=== PATIENT | male | born 1985 | race Caucasian/White ===

== ENCOUNTER 2023-10-27 23:11 | Emergency (ER) | payer MEDICAID, SELFPAY ==
[2023-10-27 23:29] VITALS: BP 160/104; PULSE 96; TEMP 37.4; O2SAT 99; BMI 25.8
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
[2023-10-28] MEDS: DIPHENHYDRAMINE HCL 25 MG CAPSULE 50 MG PO (00:16)
[2023-10-28 00:26] LABS: Basophils Absolute Auto 0.1 10^3/uL (0.0-0.1); Basophils Percent Auto 0.6 % (0.2-2.0); Eosinophils Absolute Auto 0.5 10^3/uL (0.0-0.7); Eosinophils Percent Auto 3.7 % (0.9-7.0); Hematocrit 49.9 % (42.0-54.0); Hemoglobin 16.4 g/dL (14.0-18.0); Immature Granulocytes Abs Auto 0.06 10^3/uL (0.00-0.03); Immature Granulocytes Pct Auto 0.4 % (0.0-0.5); Lymphocytes Absolute Auto 1.6 10^3/uL (1.2-3.8); Lymphocytes Percent Auto 10.9 % (20.5-60.0); Mean Corpuscular HGB Conc 32.9 g/dL (29.9-35.2); Mean Corpuscular Hemoglobin 28.4 pg (25.9-34.0); Mean Corpuscular Volume 86.5 fL (80.0-94.0); Mean Platelet Volume 8.7 fL (9.5-13.5); Monocytes Percent Auto 6.8 % (1.7-12.0); Neutrophils Absolute Auto 11.5 10^3/uL (1.4-6.5); Neutrophils Percent Auto 77.6 % (43.0-75.0); Platelet Count 404 10^3/uL (150-450); Red Blood Count 5.77 10^6/uL (4.70-6.10); Red Cell Distribution Width 13.2 % (11.0-15.0); White Blood Count 14.8 10^3/uL (4.0-11.0)
[2023-10-28 00:41] LABS: Alanine Aminotransferase 23 U/L (16-63); Albumin Level 3.9 g/dL (3.4-5.0); Alkaline Phosphatase 61 U/L (46-116); Anion Gap 10.3; Aspartate Amino Transferase 11 U/L (15-37); Bilirubin Total 0.3 mg/dL (0.2-1.0); Calcium 9.5 mg/dL (8.5-10.1); Carbon Dioxide 27.8 mmol/L (21.0-32.0); Chloride 104 mmol/L (98-107); Estimated GFR (African America >60 (>=60); Estimated GFR (Non-African Ame >60 (>=60); Globulin 4.1 g/dL; Glucose 124 mg/dL (74-106); Magnesium 2.3 mg/dL (1.8-2.4); Potassium 4.1 mmol/L (3.5-5.1); Sodium 138 mmol/L (136-145)
[2023-10-28 00:49] LABS: Ethanol <3 mg/dL
[2023-10-28 01:13] VITALS: BP 156/98; PULSE 81; TEMP 37.2; O2SAT 98
--- NOTE | 2023-10-28 03:56 | PC.NURSE ---
pt has red lee on his chin
[2023-10-28 03:57] VITALS: PULSE 104; O2SAT 93
[2023-10-30 08:12] LABS: Lithium (Eskalith(R)), Serum 1.3 mmol/L (0.5-1.2)
== END 2023-10-28 01:18 | disposition home or self-care (01) ==
PROVIDERS: Emergency Provider Internal Medicine
DX: R20.0 Anesthesia of skin (principal); T50.995A Adverse effect of other drugs, medicaments and biological substances, initial encounter
CPT/HCPCS: 36415; 80053; 80178; 80320; 83735; 85025; 99283

== ENCOUNTER 2023-10-28 03:40 | Emergency (ER) | payer MEDICAID, SELFPAY ==
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
--- NOTE | 2023-10-28 03:39 | ED_ITS ---
HPI HPI - Head Injury General Chief complaint: Altered Mental Status Stated complaint: altered mental status Time Seen by Provider: 10/28/23 03:47 History of Present Illness HPI Narrative: patient reportedly laying down on the side of the road in the grass face down. Police stop and call Squad. Squad started checking vital signs and he stood up and ran. He was tased and then tackled by police. He was restrained as he was resisting and given Versed. Now arrives in police custody. He is awake and complains that his chin is sore. States he ran because he thought the police were going to shoot him Related Data Home Medications ?Medication ?Instructions ?Recorded ?Confirmed cariprazine 1.5 mg capsule 1.5 mg PO DAILY 10/27/23 10/27/23 (Vraylar) lithium carbonate 300 mg 300 mg PO DAILY 10/27/23 10/27/23 tablet,extended release trazodone 50 mg tablet 50 mg PO DAILY 10/27/23 10/27/23 Allergies Allergy/AdvReac Type Severity Reaction Status Date / Time bupropion [From Wellbutrin] Allergy Fever Verified 10/27/23 23:28 Opioid HPI Opioid Management Most Recent Pain and Opioid Data: 2 No Data to Display Review of Systems 2 ROS0 Status of ROS 10 or more systems reviewed and unremark able except as noted in history and below Exam Constitutional Vital Signs, click to edit/add: Last Vital Signs Temp 98.9 F 10/28/23 04:12 Pulse 83 10/28/23 05:28 Resp 17 10/28/23 04:37 BP 98/65 10/28/23 05:28 Pulse Ox 93 L 10/28/23 05:28 O2 Del Method Room Air 10/28/23 04:12 Common normals: no apparent distress, average body habitus, oriented x3, no limitations, healthy appearing, alert and well nourished [facility] Common normals: normocephalic and head/scalp atraumatic Face and sinus images: 2 1. minor abrasion Eye Common normals: PERRL and EOMs intact bilaterally Respiratory Common normals: normal respiratory effort, no retractions, no use of accessory muscles and clear to auscultation bilaterally Cardio Common normals: regular rate, regular rhythm, S1 normal heart sound and S2 normal heart sound GI Common normals: Normal to inspection, nondistended, normoactive bowel sounds present and soft to palpation Extremity Common normals: normal to inspection and full ROM Neuro Common normals: oriented x3, CN's II-XII intact bilaterally, moves all extremities, no focal motor deficits and no sensory deficits noted Psych Common normals: cooperative Course Vital Signs Vital signs: Vital Signs Temperature 98.9 F 10/28/23 03:40 Pulse Rate 111 H 10/28/23 03:40 Respiratory Rate 24 H 10/28/23 03:40 Pulse Oximetry 94 L 10/28/23 03:40 Oxygen Delivery Method Room Air 10/28/23 03:40 Temperature 98.9 F 10/28/23 04:12 Pulse Rate 83 10/28/23 05:28 Respiratory Rate 17 10/28/23 04:37 Blood Pressure 98/65 10/28/23 05:28 Pulse Oximetry 93 L 10/28/23 05:28 Oxygen Delivery Method Room Air 10/28/23 04:12 MDM - Head Injury MDM Narrative Medical decision making narrative: patient was sleeping on the grass. Police called Squad and while they were checking his vital signs he ran. He was tased by police and then had to be restrained. Brought here for clearance. Exam with evidence of mild contusion of his chin. diagnostic studies of his face, head and neck neg. labs with leukocytosis and mild elevation of bun/creat . Patient given dose of Ativan here in the department to keep him calm. He remained calm and was released into the Custody of the police. Lab Data Labs: Lab Results 10/28/23 Range/Units 03:52 WBC 15.3 H (4.0-11.0) 10^3/uL RBC 6.02 (4.70-6.10) 10^6/uL Hgb 16.8 (14.0-18.0) g/dL Hct 52.1 (42.0-54.0) % MCV 86.5 (80.0-94.0) fL MCH 27.9 (25.9-34.0) pg MCHC 32.2 (29.9-35.2) g/dL RDW 13.1 (11.0-15.0) % Plt Count 390 (150-450) 10^3/uL MPV 8.7 L (9.5-13.5) fL Neut % (Auto) 87.7 H (43.0-75.0) % Lymph % (Auto) 5.3 L (20.5-60.0) % [place] % (Auto) 4.8 (1.7-12.0) % Eos % (Auto) 1.1 (0.9-7.0) % Baso % (Auto) 0.7 (0.2-2.0) % Neut # (Auto) 13.5 H (1.4-6.5) 10^3/uL Lymph # (Auto) 0.8 L (1.2-3.8) 10^3/uL [place] # (Auto) 0.7 (0.3-0.8) 10^3/uL Eos # (Auto) 0.2 (0.0-0.7) 10^3/uL Baso # (Auto) 0.1 (0.0-0.1) 10^3/uL Abs Immat Gran (auto) 0.06 H (0.00-0.03) 10^3/uL Imm/Tot Granulo (auto) 0.4 (0.0-0.5) % Sodium 137 (136-145) mmol/L Potassium 4.1 (3.5-5.1) mmol/L Chloride 103 (98-107) mmol/L Carbon Dioxide 22.0 (21.0-32.0) mmol/L Anion Gap 16.1 BUN 20.0 H (7.0-18.0) mg/dL Creatinine 1.65 H (0.70-1.30) mg/dL Est GFR ( Amer) 56 L (>=60) Est GFR (Non-Af Amer) 46 L (>=60) BUN/Creatinine Ratio 12.1 Glucose 181 H (74-106) mg/dL Calcium 9.7 (8.5-10.1) mg/dL Total Bilirubin 0.4 (0.2-1.0) mg/dL AST 14 L (15-37) U/L ALT 25 (16-63) U/L Alkaline Phosphatase 60 (46-116) U/L Total Protein 8.2 (6.4-8.2) g/dL Albumin 4.0 (3.4-5.0) g/dL Globulin 4.2 g/dL Albumin/Globulin Ratio 1.0 Ethanol Quant <3 mg/dL Discharge Plan Discharge Stand Alone Forms: Portal Instructions Chief Complaint: Altered Mental Status Clinical Impression: Anxiety, In police custody Patient Disposition: Home, Self-Care Prescriptions / Home Meds: No Action Vraylar 1.5 mg capsule 1.5 mg PO DAILY lithium carbonate 300 mg tablet extended release 300 mg PO DAILY trazodone 50 mg tablet 50 mg PO DAILY Print Language: Nepali Instructions: Anxiety (ED) Referrals: Physician,Non-Staff, MD [Primary Care Provider] - 1 week Discharge Date/Time: 10/28/23 05:49
--- NOTE | 2023-10-28 03:39 | ECG_ITS ---
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
--- NOTE | 2023-10-28 03:39 | CT_ITS ---
The [address] [address] Patient Name: MONICA GUNN MRN: [id number] date: 1985 Sex: M Assigned Patient Location: ER Current Patient Location: ER Accession/Order Number: [id number] Exam Date: 10/28/2023 04:20 Report Date: 10/28/2023 05:24 At the request of: THEODORE EGAN Procedure: CT head/brain wo con EXAM: CT head/brain wo con, CT facial bones wo con CLINICAL INDICATION: injury TECHNIQUE: Unenhanced computerized tomography of the head and facial bones was performed. Automated dose reduction technique was employed. COMPARISON: None. FINDINGS: The ventricles are normal in size, configuration, and position for age. There is no intra- or extra-axial mass, hemorrhage, or fluid collection. No areas of abnormal mass effect or attenuation are noted. Visualized paranasal sinuses are free of mucosal disease. No depressed calvarial fracture. No displaced facial bone fractures. CT/CT head/brain wo con IMPRESSION: No acute intracranial abnormality noted. No displaced facial bone fractures. Electronically authenticated by: JUANPABLO MAGDALENO Date: 10/28/2023 05:24
[2023-10-28 03:40] VITALS: PULSE 111; TEMP 37.2; O2SAT 94; BMI 25.1
--- NOTE | 2023-10-28 03:47 | CT_ITS ---
The [address] [address] Patient Name: MONICA GUNN MRN: [id number] date: 1985 Sex: M Assigned Patient Location: ER Current Patient Location: ER Accession/Order Number: [id number] Exam Date: 10/28/2023 04:20 Report Date: 10/28/2023 05:24 At the request of: THEODORE EGAN Procedure: CT facial bones wo con EXAM: CT head/brain wo con, CT facial bones wo con CLINICAL INDICATION: injury TECHNIQUE: Unenhanced computerized tomography of the head and facial bones was performed. Automated dose reduction technique was employed. COMPARISON: None. FINDINGS: The ventricles are normal in size, configuration, and position for age. There is no intra- or extra-axial mass, hemorrhage, or fluid collection. No areas of abnormal mass effect or attenuation are noted. Visualized paranasal sinuses are free of mucosal disease. No depressed calvarial fracture. No displaced facial bone fractures. CT/CT facial bones wo con IMPRESSION: No acute intracranial abnormality noted. No displaced facial bone fractures. Electronically authenticated by: JUANPABLO MAGDALENO Date: 10/28/2023 05:24
[2023-10-28 04:00] LABS: Basophils Absolute Auto 0.1 10^3/uL (0.0-0.1); Basophils Percent Auto 0.7 % (0.2-2.0); Eosinophils Absolute Auto 0.2 10^3/uL (0.0-0.7); Eosinophils Percent Auto 1.1 % (0.9-7.0); Hematocrit 52.1 % (42.0-54.0); Hemoglobin 16.8 g/dL (14.0-18.0); Immature Granulocytes Abs Auto 0.06 10^3/uL (0.00-0.03); Immature Granulocytes Pct Auto 0.4 % (0.0-0.5); Lymphocytes Absolute Auto 0.8 10^3/uL (1.2-3.8); Lymphocytes Percent Auto 5.3 % (20.5-60.0); Mean Corpuscular HGB Conc 32.2 g/dL (29.9-35.2); Mean Corpuscular Hemoglobin 27.9 pg (25.9-34.0); Mean Corpuscular Volume 86.5 fL (80.0-94.0); Mean Platelet Volume 8.7 fL (9.5-13.5); Monocytes Absolute Auto 0.7 10^3/uL (0.3-0.8); Monocytes Percent Auto 4.8 % (1.7-12.0); Neutrophils Absolute Auto 13.5 10^3/uL (1.4-6.5); Neutrophils Percent Auto 87.7 % (43.0-75.0); Platelet Count 390 10^3/uL (150-450); Red Blood Count 6.02 10^6/uL (4.70-6.10); Red Cell Distribution Width 13.1 % (11.0-15.0); White Blood Count 15.3 10^3/uL (4.0-11.0)
[2023-10-28] MEDS: LORAZEPAM 2 MG/ML VIAL 1 MG IV (04:10)
[2023-10-28 04:12] VITALS: BP 119/73; PULSE 93; TEMP 37.2; O2SAT 93
[2023-10-28 04:13] LABS: Ethanol <3 mg/dL
[2023-10-28 04:14] VITALS: PULSE 93
--- NOTE | 2023-10-28 04:15 | PC.NURSE ---
pt is in restraints with officer at bedside
[2023-10-28 04:17] LABS: Alanine Aminotransferase 25 U/L (16-63); Alkaline Phosphatase 60 U/L (46-116); Anion Gap 16.1; Aspartate Amino Transferase 14 U/L (15-37); BUN Creatinine Ratio 12.1; Bilirubin Total 0.4 mg/dL (0.2-1.0); Calcium 9.7 mg/dL (8.5-10.1); Chloride 103 mmol/L (98-107); Estimated GFR (African America 56 (>=60); Estimated GFR (Non-African Ame 46 (>=60); Globulin 4.2 g/dL; Glucose 181 mg/dL (74-106); Potassium 4.1 mmol/L (3.5-5.1); Sodium 137 mmol/L (136-145); Total Protein 8.2 g/dL (6.4-8.2)
[2023-10-28 04:37] VITALS: BP 95/66; PULSE 88; O2SAT 96
--- NOTE | 2023-10-28 04:38 | PC.NURSE ---
pt back from ct
[2023-10-28 05:28] VITALS: BP 98/65; PULSE 83; O2SAT 93
== END 2023-10-28 05:49 ==
PROVIDERS: Emergency Provider Internal Medicine
DX: F41.9 Anxiety disorder, unspecified (principal)
CPT/HCPCS: 36415; 70450; 70486; 72125; 80053; 80320; 85025; 93005; 96374; 99285; J2060